=== PATIENT | male | born 1975 | race Caucasian/White ===

== ENCOUNTER → 2020-04-13 10:38 | Outpatient (CLI) | payer OTHER, SELFPAY ==
[2020-04-16 19:11] LABS: COVID19 Sendout Not Detected (Not Detected)
== END ==
PROVIDERS: Visit Provider Physician Assistant
DX: J32.9 Chronic sinusitis, unspecified (principal)
CPT/HCPCS: 87635

== ENCOUNTER 2020-05-02 18:00 | Emergency (ER) | payer OTHER, SELFPAY ==
[2020-05-02 18:07] VITALS: BP 142/83; PULSE 69; RESP 16; O2SAT 99
--- NOTE | 2020-05-02 18:07 | DI.RAD.S_ITS ---
PROCEDURE: XR WRIST LT MIN 3V INDICATIONS: parasailing vs concrete TECHNIQUE: 4 views of the wrist were acquired. COMPARISON: None. FINDINGS: Bones: Postsurgical changes compatible with ORIF of distal radius fracture noted. Orthopedic hardware is intact. No lucencies at the bone hardware interface. Chronic appearing ulnar styloid process fracture noted. Cortical step-off noted in the medial margin of the distal ulna Scaphoid view: Scaphoid is intact. Soft tissues: No suspicious soft tissue calcifications. IMPRESSION: 1. Chronic distal radius and ulnar styloid process fractures. 2. Possible nondisplaced acute distal ulnar fracture. Dictated by: Chiquita Turpin MD, PhD on 05/02/2020 at 18:35 Approved by: Chiquita Turpin MD, PhD on 05/02/2020 at 18:36
--- NOTE | 2020-05-02 18:07 | DI.RAD.S_ITS ---
PROCEDURE: XR TOE LT MIN 2V INDICATIONS: parasailing vs concrete TECHNIQUE: 2 views of the right 1st toe(s) acquired. COMPARISON: None. FINDINGS: Bones: Mildly displaced fracture through the base of the 1st proximal phalanges which stands into the MTP joint. The 2nd PIP and DIP joints are held in marked flexion and may be dislocated. Soft tissues: No suspicious soft tissue densities. IMPRESSION: 1. 1st proximal phalange fracture. 2. Possible 2nd interphalangeal joint dislocations. Recommend correlation with clinical data. Dictated by: Chiquita Turpin MD, PhD on 05/02/2020 at 18:33 Approved by: Chiquita Turpin MD, PhD on 05/02/2020 at 18:35
[2020-05-02 18:18] VITALS: TEMP 37
--- NOTE | 2020-05-02 18:20 | ED.UPPEXIN ---
HPI - Extremity Injury (Upper) General Chief Complaint: Extremity Injury, Upper Stated Complaint: FALL LEFT ARM INJURY Time Seen by Provider: 05/02/20 18:00 Source: patient Mode of arrival: Ambulatory Limitations: no limitations History of Present Illness HPI narrative: 44-year-old male nonsmoker with noncontributory medical history presents with his in the chief complaint of multiple injuries just prior to arrival after injury while parasailing. He has multiple superficial abrasions and states his tetanus is current. He denies head, neck, or back pain. He has a history of prior complex left wrist fracture status post repair and states he has pain and swelling along with some poor alignment but is unclear what his baseline actually is. He denies any numbness, tingling or weakness. He does have some increased pain with range of motion. Additionally he has some pain and swelling was left great toe as well as superficial abrasion of right lateral thigh. Related Data Home Medications Medication Instructions Recorded Confirmed fluticasone propionate 50 2 spray NASAL DAILY 04/25/20 04/25/20 mcg/actuation nasal spray,suspension loratadine 10 mg tablet 10 mg PO DAILY 04/25/20 04/25/20 Previous Rx's Medication Instructions Recorded cefixime 400 mg capsule 400 mg PO DAILY #21 cap 04/25/20 hydrocodone-acetaminophen 1 tab PO Q4-6H PRN #10 tab 05/02/20 Allergies Allergy/AdvReac Type Severity Reaction Status Date / Time No Known Drug Allergies Allergy Verified 04/25/20 16:04 Review of Systems Constitutional Constitutional: Denies chills, Denies fatigue, Denies fever(s), Denies frequent falls, Denies lethargy and Denies weakness Eyes Eyes: Denies change in vision, Denies eye discharge, Denies irritation and Denies loss of vision ENT Ears, Nose, Mouth, and Throat: Denies change in voice, Denies dizziness, Denies neck pain, Denies sore throat and Denies throat swelling Cardiovascular Cardiovascular: Denies chest pain, Denies irregular heart rhythm, Denies lightheadedness, Denies palpitations, Denies dyspnea, Denies dyspnea on exertion and Denies orthopnea Respiratory Respiratory: Denies cough, Denies dyspnea, Denies dyspnea on exertion and Denies wheezing Gastrointestinal Gastrointestinal: Denies abdominal pain, Denies change in bowel habits, Denies diarrhea, Denies nausea and Denies vomiting Musculoskeletal Musculoskeletal: Reports deformity, Reports arthralgias, Reports joint swelling, Denies neck pain and Denies numbness Integumentary/Breasts Skin/Breast: Denies pruritus, Denies erythema, Denies rash, Reports skin swelling and Reports wounds Neurologic Neurologic: Denies behavioral changes, Denies confusion, Denies dizziness, Denies frequent falls, Denies loss of vision, Denies numbness and Denies weakness Psychiatric Psychiatric: Denies anxiety, Denies behavioral changes, Denies confusion, Denies depression, Denies homicidal ideation and Denies suicidal ideation Endocrine Endocrine: Denies fatigue, Denies flushing and Denies palpitations Hematologic/Lymphatic Hematologic/Lymphatic: Denies easy bruising Allergic/Immunologic Allergic/Immunologic: Denies urticaria, Denies throat swelling and Denies wheezing Patient History Medical History Allergic rhinitis (Chronic) Sinusitis (Resolved) Surgical History History of back surgery (Acute ~1992) Family History Mother Lung cancer Social History Smoking Status: Never smoker Smoking Status: Never smoker Exam Narrative Exam Narrative: GENERAL: [44] year old patient appears stated age. Well-nourished, well-developed patient, in mild distress. GCS 15 HEAD: Atraumatic. Normocephalic. EYES: Pupils equal round and reactive. Extraocular motions intact. No scleral icterus. No injection or drainage. ENT: Nose without bleeding, purulent drainage. Throat without erythema, tonsillar hypertrophy or exudate. Airway patent. NECK: Trachea midline. Non tender CARDIOVASCULAR: Regular rate and rhythm without murmurs, gallops, or rubs. RESPIRATORY: Clear to auscultation. Breath sounds equal bilaterally. No wheezes, rales, or rhonchi. GASTROINTESTINAL: Abdomen soft, non-tender, nondistended. EXTREMITIES: Full but painful range of motion of left wrist with what appears to be some lateral deviation. Close, neurovascularly intact. Left great toe with ecchymosis and painful range of motion. Closed and neurovascularly intact BACK: Nontender without deformity or crepitance. No flank tenderness. NEURO: AOx3. SKIN: No rash or erythema of visible areas Initial Vital Signs Initial Vital Signs: Vital Signs Pulse Rate 69 05/02/20 18:07 Respiratory Rate 16 05/02/20 18:07 Blood Pressure 142/83 H 05/02/20 18:07 Pulse Oximetry 99 05/02/20 18:07 Procedures Orthopedic Splinting/Casting Injury #1: Side: left Lower Extremity Injury Location: toe Lower Extremity Immobilizer: post-op shoe Post splinting neuro exam: intact Post splinting vascular exam: intact Placed by: Nursing Injury #2: Side: left Upper Extremity Injury Location: wrist Upper Extremity Immobilizer: wrist splint Post splinting neuro exam: intact Post splinting vascular exam: intact Placed by: Nursing Course Orders Ordered: ED Orders 05/02/20 18:07 XR toe LT min 2V Stat XR wrist LT min 3V Stat Discontinued Medications Bacitracin (Bacitracin) 1 applic TOP NOW ONE Stop: 05/02/20 18:44 Vital Signs Vital signs: Vital Signs - 8 hr 05/02/20 18:07 05/02/20 18:18 05/02/20 19:19 Temperature 98.6 F Pulse Rate 69 61 Respiratory Rate 16 16 Blood Pressure 142/83 H 124/71 Pulse Oximetry 99 98 MDM - Extremity Injury (Upper) Imaging Data Extremity x-ray #1: Radiologist's Impression: [address] [address] XRay Report Signed Patient: Alek William DMR#: [id number] : 1975Acct:[id number] Age/Sex: 44 / MDate of Service: 05/02/20 Loc: ED Accession Number: [id number] Procedure: XR toe LT min 2V Ordering Provider: Chris Rosario D.O. PROCEDURE: XR TOE LT MIN 2V INDICATIONS: parasailing vs concrete TECHNIQUE: 2 views of the right 1st toe(s) acquired. COMPARISON: None. FINDINGS: Bones: Mildly displaced fracture through the base of the 1st proximal phalanges which stands into the MTP joint. The 2nd PIP and DIP joints are held in marked flexion and may be dislocated. Soft tissues: No suspicious soft tissue densities. IMPRESSION: 1. 1st proximal phalange fracture. 2. Possible 2nd interphalangeal joint dislocations. Recommend correlation with clinical data. Dictated by: Chiquita Turpin MD, PhD on 05/02/2020 at 18:33 Approved by: Chiquita Turpin MD, PhD on 05/02/2020 at 18:35 Extremity x-ray #2: Radiologist's Impression: [address] [address] XRay Report Signed Patient: Alek William DMR#: [id number] : 1975Acct:[id number] Age/Sex: 44 / MDate of Service: 05/02/20 Loc: ED Accession Number: [id number] Procedure: XR wrist LT min 3V Ordering Provider: Chris Rosario D.O. PROCEDURE: XR WRIST LT MIN 3V INDICATIONS: parasailing vs concrete TECHNIQUE: 4 views of the wrist were acquired. COMPARISON: None. FINDINGS: Bones: Postsurgical changes compatible with ORIF of distal radius fracture noted. Orthopedic hardware is intact. No lucencies at the bone hardware interface. Chronic appearing ulnar styloid process fracture noted. Cortical step-off noted in the medial margin of the distal ulna Scaphoid view: Scaphoid is intact. Soft tissues: No suspicious soft tissue calcifications. IMPRESSION: 1. Chronic distal radius and ulnar styloid process fractures. 2. Possible nondisplaced acute distal ulnar fracture. Dictated by: Chiquita Turpin MD, PhD on 05/02/2020 at 18:35 Approved by: Chiquita Turpin MD, PhD on 05/02/2020 at 18:36 Discharge Plan Departure Patient Disposition: Home Clinical Impression: Abrasion Fracture of toe Qualifiers: Encounter type: initial encounter Toe: great toe Fracture type: closed Phalanx: proximal Fracture alignment: nondisplaced Laterality: left Qualified Code(s): S92.415A - Nondisplaced fracture of proximal phalanx of left great toe, initial encounter for closed fracture Left wrist sprain Qualifiers: Encounter type: initial encounter Qualified Code(s): S63.502A - Unspecified sprain of left wrist, initial encounter Discharge Date/Time: 05/02/20 19:19 Instructions: DI for Toe Fracture, DI for Abrasion Activity Restrictions/Additional Instructions: *You have been diagnosed with [left great toe fracture, possible nondisplaced distal ulna fracture of left wrist, multiple abrasions] *What to do: *Take medications as directed: prescription sent to [facility] at your request *Follow up with your primary care provider in 2-3 days, call for an appointment. Let them know you were seen in the Emergency Department and that we ask that you be seen in follow up *Return to ER if you should have any new, worsening or concerning symptoms Splint Care: Keep splint clean and dry. Elevated affected body part to decrease swelling. OK to use ice pack on the affected body part. Use for 15-20 minutes each time, for 5-6x per day. If you develop worsening pain, numbness, tingling, discoloration of the affected body part, loosen the splint by loosening the RADHA wrap, and either see your doctor for an urgent re-assessment, or return to the Emergency Department. Return to the Emergency Department for any new or worsening symptoms. Prescriptions: New hydrocodone-acetaminophen 5-325 mg tablet 1 tab PO Q4-6H PRN (Reason: pain) Qty: 10 RF: 0 No Action fluticasone propionate 50 mcg/actuation spray,suspension 2 spray NASAL DAILY RF: 0 loratadine [Claritin] 10 mg tablet 10 mg PO DAILY RF: 0 cefixime 400 mg capsule 400 mg PO DAILY Qty: 21 RF: 2 Referrals: Anmol Ospina MD [Primary Care Provider] - iMchael Mcintyre MD [Physician] -
[2020-05-02 19:19] VITALS: BP 124/71; PULSE 61; RESP 16; O2SAT 98
== END 2020-05-02 19:19 | disposition home or self-care (01) ==
PROVIDERS: Emergency Provider Emergency Medicine; PCP Internal Medicine
DX: S92.415A Nondisplaced fracture of proximal phalanx of left great toe, initial encounter for closed fracture (principal); S63.502A Unspecified sprain of left wrist, initial encounter; S70.311A Abrasion, right thigh, initial encounter; Y93.19 Activity, other involving water and watercraft
CPT/HCPCS: 29125; 73110; 73660; 99283; 99284

== ENCOUNTER → 2020-08-29 12:41 | Outpatient (CLI) | payer OTHER, SELFPAY ==
--- NOTE | 2020-08-29 13:17 | DI.CT.S_ITS ---
PROCEDURE: CT SINUS SCREEN WO CON INDICATIONS: Chronic pansinusitis TECHNIQUE: Noncontrast 3.0 mm axial images acquired from the frontal sinuses to the mid-sella, with coronal and sagittal reformats. For radiation dose reduction, the following was used: automated exposure control, adjustment of mA and/or kV according to patient size. COMPARISON: None. FINDINGS: Image quality: This examination is limited by involuntary motion artifact. Maxillary Sinuses: No bony remodeling or destruction. Small mucous retention cysts are seen within the maxillary sinuses. Sinuses are otherwise clear. Ethmoid Air Cells: No bony remodeling or destruction. Sinuses are clear. Sphenoid Sinuses: No bony remodeling or destruction. Sinuses are clear. Frontal Sinuses: No bony remodeling or destruction. Sinuses are clear. Ostiomeatal Complexes: Ostiomeatal complexes are patent, yet they are constitutionally narrowed, with bilateral Hayley cells. Miscellaneous: Visualized intra-orbital contents are normal. There are bilateral arturo bullosa. There is minimal rightward nasal septal deviation. IMPRESSION: No significant active paranasal sinus disease is seen. Narrowed ostiomeatal complexes, with bilateral Hayley cells. Bilateral arturo bullosa are seen. Dictated by: Sb Lopez M.D. on 08/29/2020 at 12:23 Approved by: Sb Lopez M.D. on 08/29/2020 at 12:24
== END ==
PROVIDERS: PCP Internal Medicine; Referring Provider Otolaryngology; Visit Provider Otolaryngology
DX: J32.4 Chronic pansinusitis (principal)
CPT/HCPCS: 70486

== ENCOUNTER → 2021-06-06 08:58 | Outpatient (CLI) | payer OTHER, SELFPAY ==
[2021-06-06 09:50] LABS: COVID19 -Nasal RAPID Negative (Negative)
== END ==
PROVIDERS: PCP Internal Medicine; Visit Provider Physician Assistant
DX: R53.83 Other fatigue (principal); R51.9 Headache, unspecified; Z20.822 Contact with and (suspected) exposure to COVID-19
CPT/HCPCS: 87635

== ENCOUNTER → 2021-07-10 08:29 | Outpatient (CLI) | payer OTHER, SELFPAY ==
[2021-07-10 09:08] LABS: Cholesterol 184 mg/dL (140-199); HDL Cholesterol 50 mg/dL (40-60); LDL Cholesterol Calculated 117 mg/dL (<100); Triglycerides 83 mg/dL (35-150)
== END ==
PROVIDERS: PCP Internal Medicine; Referring Provider Internal Medicine; Visit Provider Internal Medicine
DX: Z13.220 Encounter for screening for lipoid disorders (principal)
CPT/HCPCS: 36415; 80061

== ENCOUNTER → 2021-10-11 07:36 | Outpatient (CLI) | payer OTHER, SELFPAY ==
[2021-10-11 08:16] LABS: COVID19 -Nasal RAPID Negative (Negative)
== END ==
PROVIDERS: PCP Internal Medicine; Visit Provider Nurse Practitioner Family
DX: Z20.822 Contact with and (suspected) exposure to COVID-19 (principal)
CPT/HCPCS: 87635

== ENCOUNTER → 2022-04-11 13:43 | Outpatient (CLI) | payer OTHER, SELFPAY ==
[2022-04-11 14:27] LABS: COVID19 -Nasal RAPID Negative (Negative)
== END ==
PROVIDERS: PCP Internal Medicine; Visit Provider Surgery
DX: Z20.822 Contact with and (suspected) exposure to COVID-19 (principal); Z01.812 Encounter for preprocedural laboratory examination
CPT/HCPCS: 87635; C9803

== ENCOUNTER 2022-04-12 12:59 | Day surgery (SDC) | payer OTHER, SELFPAY ==
--- NOTE | 2022-04-12 | PATH_ITS ---
[facility] Accession Number: [id number] . 01 Material submitted: . colon - CECUM POLYP . 01 Diagnosis: Cecum, Polyp, Biopsy: Tubular adenoma. MRV 04/13/2022 1224 Local . 01 Electronically signed: . Jeanette Shetty MD, Pathologist NPI- [id number] . 01 Gross description: . CECUM POLYP: Received in formalin is 1 fragment(s) of campos, soft tissue measuring 0.8 x 0.7 x 0.7 cm which is bisected and submitted entirely in 1 cassette(s) /JOSELUIS 04/13/2022 0205 Local . 01 Pathologist provided ICD-10: D12.0 . 01 CPT . 537743 Specimen Comment: A courtesy copy of this report has been sent to [phone] Performed at: 01 [facility] [address] [place] [id number] MD Gino Lubin MD Phone: [phone]
[2022-04-12 13:28] VITALS: BP 129/84; PULSE 51; RESP 16; TEMP 36.2; O2SAT 99; BMI 27.6
[2022-04-12] MEDS: LACTATED RINGERS 1,000 ML 42 ML IV (13:34)
--- NOTE | 2022-04-12 14:25 | PM.HP.1 ---
History of Present Illness History of Present Illness Date Patient Seen: 04/12/22 Time Patient Seen: 14:25 Chief complaint: SDC Narrative: Alek is a healthy 46-year-old man who is here for a colonoscopy for colon cancer screening. He has no known family history colon cancer. He has never had a colonoscopy before. Patient History Medical History (Updated 04/12/22 @ 14:26 by Bryce Hightower MD) Allergic rhinitis Sinusitis Surgical History History of back surgery (~1992) Family & Social History Family History Mother Lung cancer Social History: household members spouse Tobacco & Substance use: Smoking Status Never smoker alcohol intake current alcohol intake frequency a few times a month Substance Use Type does not use Meds Home Medications and Allergies Home Medications Medication Instructions Recorded Confirmed Type epinephrine 0.3 mg/0.3 mL 0.3 mg IM ONCE PRN anaphylaxis 12/15/21 12/15/21 History injection, auto-injector sodium,potassium,mag sulfates 17.5 See Rx Instructions PO .COMPLEX 12/15/21 Rx gram-3.13 gram-1.6 gram oral soln #354 mL (Suprep Bowel Prep Kit) Allergies Allergy/AdvReac Type Severity Reaction Status Date / Time No Known Drug Allergies Allergy Verified 12/15/21 10:28 Exam Vital Signs (past 8 hours): - 04/12/22 13:28 Temperature 97.1 F L Pulse Rate 51 L Respiratory Rate 16 Blood Pressure 129/84 Pulse Oximetry 99 Oxygen Delivery Method Room Air Oxygen Delivery Method Room Air Const General: healthy appearing Resp Effort & Inspection: normal respiratory effort Assessment & Plan Assessment and plan (1) Colon cancer screening: Status: Acute Plan Alek is a 46-year-old man who is here for colon cancer screening. We reviewed the risks of colonoscopy and he would like to proceed. Time Spent With Patient Critical Care time: I spent a total of [] minutes of critical care time on this patient's care today; this time is exclusive of procedural time.
[2022-04-12] MEDS: fentaNYL 250 MCG/5 ML INJ 200 MCG IV (14:46)
[2022-04-12] MEDS: MIDAZOLAM 5 MG/5 ML VIAL 10 MG IV (14:52)
--- NOTE | 2022-04-12 15:02 | P.OP.COLON_ITS ---
Operative Date/Time/Diagnoses Date of procedure: 04/12/22 Time of procedure: 15:03 Pre-op diagnosis: Colon cancer screening Post-op diagnosis: same Procedure & Clinicians Study performed: Colonoscopy Same procedure as scheduled: Yes Surgeon: Bryce Hightower Procedure Notes Procedure in detail: Surgeon: Bryce Hightower MD Procedure: The patient was brought to the endoscopy suite, placed in left lateral decubitus position. The patient was connected to monitoring devices. A time-out was performed. Sedation was administered. Once the patient was adequately sedated, a digital rectal exam was performed and was normal. The scope was then inserted and advanced to the cecum where the appendiceal orifice was identified and photographed. The scope was then slowly withdrawn over greater than 6 minutes. The mucosa was thoroughly inspected. There was a rather large pedunculated polyp in the ascending colon. It was roughly 1.5 cm in diameter. It was removed with a hot snare retrieved with a Busby net. Once specimen was extracted the scope was reinserted and the rest of the colon was t horoughly examined. There were no other lesions. The scope was retroflexed in the rectum. No abnormalities were noted. The scope was straightened and removed. The patient was awakened and brought to recovery. Versed: 10 mg Fentanyl: 200 mcg EBL: 5 mL Findings: 1.5 cm ascending colon polyp Scope withdrawal time: 17 Sedation minutes: 29 Post-procedure Recommendations: Will call with biopsy results Disposition: PACU
[2022-04-12 15:10] VITALS: BP 136/81; PULSE 74; RESP 16; O2SAT 98
[2022-04-12 15:12] VITALS: BP 137/88; PULSE 65; RESP 18; TEMP 36.6; O2SAT 98
[2022-04-12 15:15] VITALS: BP 136/81; PULSE 74; RESP 16; O2SAT 97
[2022-04-12 15:25] VITALS: BP 123/87; PULSE 64; RESP 16; TEMP 36.4; O2SAT 97
--- NOTE | 2022-04-12 15:46 | SUR.PHASEII ---
Addendum entered by Earline Bach R.N. 04/12/22 16:05: 1600- here. Discharged to home with paperwork and all belongings. escorted by wheelchair to 's care and car. Original Note: 04/12/22-1530 meets criteria for discharge.no pain/nausea. iv out. dressed and ready. has all valubles. to call when arrived. eta 20 minutes.
== END 2022-04-12 16:00 | disposition home or self-care (01) ==
PROVIDERS: PCP Internal Medicine; Referring Provider Surgery; Visit Provider Surgery
PROC: 0DJD8ZZ Inspection of Lower Intestinal Tract, Via Natural or Artificial Opening Endoscopic (ICD-10-PCS; CPT 45378; principal; 2022-04-12 14:15)
DX: Z12.11 Encounter for screening for malignant neoplasm of colon (principal); D12.0 Benign neoplasm of cecum
CPT/HCPCS: 45385; 99152; 99153; J2250; J3010

== ENCOUNTER → 2023-10-10 12:19 | Outpatient (CLI) | payer OTHER, SELFPAY ==
[2023-10-10 13:42] LABS: Influenza A - CEPHEID Flu A NEGATIVE (NEGATIVE); Influenza B - CEPHEID Flu B NEGATIVE (NEGATIVE); Respiratory Syncytial Virus Negative (Negative)
[2023-10-10 13:53] LABS: COVID-19 CEPHEID 4-PLEX PCR Negative (Negative)
== END ==
PROVIDERS: PCP Internal Medicine; Visit Provider Physician Assistant
DX: R05.1 Acute cough (principal)
CPT/HCPCS: 0241U

== ENCOUNTER → 2023-10-10 12:22 | Outpatient (CLI) | payer OTHER, SELFPAY ==
--- NOTE | 2023-10-10 12:24 | DI.RAD.S_ITS ---
PROCEDURE: XR CHEST 2V INDICATIONS: chronic cough x 1 mo TECHNIQUE: 2 views of the chest were acquired. COMPARISON: None. FINDINGS: Surgical changes and devices: None. Lungs and pleura: Lungs are clear. No pleural effusions or pneumothorax. Mediastinum: Mediastinal contours are normal. Heart size is normal. Bones and chest wall: No suspicious bony abnormalities. Soft tissues appear unremarkable. IMPRESSION: No acute cardiopulmonary abnormalities or focal airspace disease. Dictated by: Martin Bravo M.D. on 10/10/2023 at 14:26 Approved by: Martin Bravo M.D. on 10/10/2023 at 14:26
== END ==
LOC: RAD 12:23
PROVIDERS: PCP Internal Medicine; Referring Provider Physician Assistant; Visit Provider Physician Assistant
DX: J06.9 Acute upper respiratory infection, unspecified (principal); R05.1 Acute cough
CPT/HCPCS: 0241U; 71046

== ENCOUNTER 2023-12-15 11:51 | Emergency (ER) | payer OTHER, SELFPAY ==
[2023-12-15 12:06] VITALS: BP 183/75; PULSE 96; RESP 16; TEMP 37.3; O2SAT 96; BMI 26.9
--- NOTE | 2023-12-15 12:14 | DI.RAD.S_ITS ---
PROCEDURE: XR CHEST 2V INDICATIONS: cough TECHNIQUE: 2 views of the chest were acquired. COMPARISON: [facility], CR, XR CHEST 2V, 10/10/2023, 13:29. FINDINGS: Surgical changes and devices: None. Lungs and pleura: No consolidation identified. Lungs appear unchanged. No pleural effusions or pneumothorax. Mediastinum: Mediastinal contours are normal. Heart size is normal. Bones and chest wall: No suspicious bony abnormalities. Soft tissues appear unremarkable. IMPRESSION: No consolidation identified. Dictated by: Pa Robert M.D. on 12/15/2023 at 12:24 Approved by: Pa Robert M.D. on 12/15/2023 at 12:25
[2023-12-15 13:08] LABS: Influenza A - CEPHEID Flu A NEGATIVE (NEGATIVE); Influenza B - CEPHEID Flu B NEGATIVE (NEGATIVE); Respiratory Syncytial Virus Negative (Negative)
[2023-12-15 13:10] LABS: COVID-19 CEPHEID 4-PLEX PCR Negative (Negative)
--- NOTE | 2023-12-15 13:32 | ED.URI ---
HPI - URI/Sore Throat <NITO Corona - Last Filed: 12/15/23 13:51> General Chief Complaint: Upper Respiratory Symptoms Stated Complaint: Chronic cough/ach/pains/fever/just nt getting bett Time Seen by Provider: 12/15/23 12:43 Source: patient Mode of arrival: Ambulatory History of Present Illness HPI Narrative: 48-year-old male, never smoker, presents to the emergency department with cough, congestion, sinus pain and ear fullness. Patient reports symptoms have been ongoing for over 1 month. Patient was seen in the walk-in clinic, initially felt better, but then started feeling poorly again over the next week. Patient denies a history of asthma, bronchitis or pneumonia. Related Data Home Medications Medication Instructions Recorded Confirmed epinephrine 0.3 mg/0.3 mL 0.3 mg IM ONCE PRN anaphylaxis 12/15/21 10/10/23 injection, auto-injector Previous Rx's Medication Instructions Recorded benzonatate 100 mg capsule 100 mg PO BID PRN cough #20 caps 06/29/23 albuterol sulfate 90 mcg/actuation 2 puff inhalation Q4-6H PRN 10/10/23 aerosol inhaler shortness of breath or wheezing #6.7 grams fluticasone propionate 50 1 spray intranasal DAILY #16 grams 10/10/23 mcg/actuation nasal spray,suspension (Flonase Allergy Relief) guaifenesin 1,200 mg tablet, 1,200 mg PO Q12H #30 tabs 10/10/23 extended release 12 hr dextroamphetamine sulfate 10 mg 10 mg PO TID PRN ADHD #60 tabs 11/12/23 tablet dextroamphetamine-amphetamine ER 10 mg PO DAILY #30 caps 11/12/23 10 mg 24hr capsule,extend release amoxicillin 875 mg-potassium 1 tab PO BID Sinusitis 10 days #20 12/15/23 clavulanate 125 mg tablet tabs Allergies Allergy/AdvReac Type Severity Reaction Status Date / Time No Known Drug Allergies Allergy Verified 12/15/23 12:11 Review of Systems <NITO Corona - Last Filed: 12/15/23 13:51> Review of Systems Narrative: Narrative: See HPI. GENERAL: Denies chills, fatigue, fever, sweats. HEENT: Denies sore throat, difficulty swallowing, dizziness. Endorses sinus pain and right ear pain. RESPIRATORY: Denies dyspnea, wheezing, sputum. Endorses cough and congestion. CARDIOVASCULAR: Denies chest pain, palpitations, edema. GASTROINTESTINAL: Denies nausea, vomiting, abdominal pain, diarrhea, constipation. : Denies dysuria, frequency, incontinence, hematuria, urinary retention, flank pain. MSK: Denies weakness, joint pain, or bony pain. SKIN: Denies rash, skin lesions, or pruritis. NEUROLOGIC: Denies weakness, dizziness, headache, numbness, confusion. Patient History <NITO Corona - Last Filed: 12/15/23 13:51> Medical History ADHD History of adenomatous polyp of colon Allergic rhinitis Sinusitis Surgical History History of back surgery (~1992) Family History Mother Lung cancer Social History household members: spouse Smoking Status: Never smoker alcohol intake: current Smoking Status: Never smoker alcohol intake frequency: a few times a month Substance Use Type: does not use Exam <NITO Corona - Last Filed: 12/15/23 13:51> Narrative Exam Narrative: Exam Narrative: GENERAL: This is a well-nourished, well-developed patient, in no acute distress. HEAD: Atraumatic. Normocephalic. EYES: Pupils equal round and reactive. No scleral icterus, injection or drainage. ENT: Nose without bleeding, purulent drainage. Throat without erythema, tonsillar hypertrophy or exudate. Uvula midline. Airway patent. Right TM is bulging and with yellow discharge behind TM. Left TMs and canals clear. Pansinus tenderness. NECK: Trachea midline. No JVD or lymphadenopathy. Nontender. CARDIOVASCULAR: Regular rate and rhythm without murmurs, peripheral pulses intact, cap refill <2 sec. RESPIRATORY: Breath sounds equal and clear bilaterally. No wheezes, rales, or rhonchi. No cough. No increased respiratory effort. No accessory muscle use. GASTROINTESTINAL: Abdomen soft, non-tender, nondistended without guarding or rebound. No suprapubic pain. MSK: Moves all extremities. Normal range of motion, no clubbing or edema. Neurovascularly intact. NEURO: A&O x 3. SKIN: Warm, dry, no rashes or lesions noted. Initial Vital Signs Initial Vital Signs: Vital Signs Temperature 99.1 F 12/15/23 12:06 Pulse Rate 96 H 12/15/23 12:06 Respiratory Rate 16 12/15/23 12:06 Blood Pressure 183/75 H 12/15/23 12:06 Pulse Oximetry 96 12/15/23 12:06 Oxygen Delivery Method Room Air 12/15/23 12:06 Reviewed <You Schulte DO - Last Filed: 12/15/23 14:05> Initial Vital Signs Initial Vital Signs: Vital Signs Temperature 99.1 F 12/15/23 12:06 Pulse Rate 96 H 12/15/23 12:06 Respiratory Rate 16 12/15/23 12:06 Blood Pressure 183/75 H 12/15/23 12:06 Pulse Oximetry 96 12/15/23 12:06 Oxygen Delivery Method Room Air 12/15/23 12:06 Course <NITO Corona - Last Filed: 12/15/23 13:51> Orders Ordered: ED Orders 12/15/23 12:14 XR chest 2V Stat 12/15/23 12:15 Covid-19 + FLU A/B + RSV - PCR Stat Vital Signs Vital signs: Vital Signs - 8 hr 12/15/23 12:06 12/15/23 13:58 Temperature 99.1 F Pulse Rate 96 H 86 Respiratory Rate 16 24 Blood Pressure 183/75 H 129/74 Pulse Oximetry 96 97 Oxygen Delivery Method Room Air Room Air <You Schulte DO - Last Filed: 12/15/23 14:05> Orders Ordered: ED Orders 12/15/23 12:14 XR chest 2V Stat 12/15/23 12:15 Covid-19 + FLU A/B + RSV - PCR Stat Vital Signs Vital signs: Vital Signs - 8 hr 12/15/23 12:06 12/15/23 13:58 Temperature 99.1 F Pulse Rate 96 H 86 Respiratory Rate 16 24 Blood Pressure 183/75 H 129/74 Pulse Oximetry 96 97 Oxygen Delivery Method Room Air Room Air MDM - URI/Sore Throat <NITO Corona - Last Filed: 12/15/23 13:51> Differential Diagnosis Differential diagnosis: Likely upper respiratory infection, otitis media, sinusitis, viral infection and bronchitis Lab Data Labs: Lab Results 12/15/23 Range/Units 12:15 SARS-CoV-2 (PCR) Negative (Negative) Influenza A (RT-PCR) Flu a negative (NEGATIVE) Influenza B (RT-PCR) Flu b negative (NEGATIVE) RSV (PCR) Negative (Negative) Imaging Data Chest x-ray: Radiologist's Impression: [address] [address] XRay Report Signed Patient: Alek William MR#: [id number] : 1975 Acct:[id number] Age/Sex: 48 / M Date of Service: 12/15/23 Loc: ED Accession Number: [id number] Procedure: XR chest 2V Ordering Provider: You Schulte D.O. PROCEDURE: XR CHEST 2V INDICATIONS: cough TECHNIQUE: 2 views of the chest were acquired. COMPARISON: [facility], , XR CHEST 2V, 10/10/2023, 13:29. FINDINGS: Surgical changes and devices: None. Lungs and pleura: No consolidation identified. Lungs appear unchanged. No pleural effusions or pneumothorax. Mediastinum: Mediastinal contours are normal. Heart size is normal. Bones and chest wall: No suspicious bony abnormalities. Soft tissues appear unremarkable. IMPRESSION: No consolidation identified. Dictated by: Pa Robert M.D. on 12/15/2023 at 12:24 Approved by: Pa Robert M.D. on 12/15/2023 at 12:25 MDM Narrative Medical decision making narrative: 48-year-old male with cough, congestion, sinus pain and ear pain. Assessment was consistent with sinusitis and right otitis media. Chest x-ray was normal and viral panel was negative for COVID, influenza and RSV. Will treat with Augmentin for 10 days. Discussed plan of care and return precautions with patient, who verbalized understanding and was agreeable with course of action. <You Schulte DO - Last Filed: 12/15/23 14:05> Lab Data Labs: Lab Results 12/15/23 Range/Units 12:15 SARS-CoV-2 (PCR) Negative (Negative) Influenza A (RT-PCR) Flu a negative (NEGATIVE) Influenza B (RT-PCR) Flu b negative (NEGATIVE) RSV (PCR) Negative (Negative) Discharge Plan Departure Patient Disposition: Home Clinical Impression: Acute right otitis media Sinusitis Qualifiers: Sinusitis location: pansinusitis Chronicity: acute Recurrence: not specified as recurrent Qualified Code(s): J01.40 - Acute pansinusitis, unspecified Instructions: DI for Sinusitis Activity Restrictions/Additional Instructions: *You have been diagnosed with a sinus and right ear infection. We will treat this with Augmentin for 10 days. Your chest x-ray was normal and your viral panel was negative for COVID, influenza and RSV. Please make sure you hydrate well, get plenty of rest and take [id number] medications as needed. Please follow up with family doctor or return to the emergency department for worsening symptoms. *What to do: *Please continue to take your regular medications as directed. [x ] New medication prescriptions sent to your pharmacy: [[facility]] [ ] New medication written as a paper prescription [ ] No new medications given *Please follow up with your primary care provider in 2-3 days, call for an appointment. Let them know you were seen in the Emergency Department and that we ask that you be seen in follow up. We will electronically transmit a record of today's note if your PCP is in our system *If you do not have a primary care provider please contact the [facility] Resource line at [phone]. They will ask some questions about your medical history and help get you set up with a doctor in the community. ? Return to ER if you should have any new, worsening or concerning symptoms, such as worsening pain, severe headache, confusion, chest pain, difficulty breathing, fever greater than 101 F, shaking chills, persistent vomiting to the point that you cannot drink fluids, or other new or worsening symptoms. Prescriptions: New amoxicillin-pot clavulanate 875-125 mg tablet 1 tab PO BID 10 Days Qty: 20 0RF No Action benzonatate 100 mg capsule 100 mg PO BID PRN (Reason: cough) Qty: 20 0RF guaifenesin 1,200 mg tablet extended release 12hr 1,200 mg PO Q12H Qty: 30 0RF fluticasone propionate [Flonase Allergy Relief] 50 mcg/actuation spray,suspension 1 spray intranasal DAILY Qty: 16 0RF Rx Instructions: administer into each nostril albuterol sulfate 90 mcg/actuation HFA aerosol inhaler 2 puff inhalation Q4-6H PRN (Reason: shortness of breath or wheezing) Qty: 6.7 0RF dextroamphetamine sulfate 10 mg tablet 10 mg PO TID PRN (Reason: ADHD) Qty: 60 0RF Rx Instructions: administer doses at least 4-6 hours apart dextroamphetamine-amphetamine 10 mg capsule,extended release 24hr 10 mg PO DAILY Qty: 30 0RF epinephrine 0.3 mg/0.3 mL auto-injector 0.3 mg IM ONCE PRN (Reason: anaphylaxis) Patient Comments: never used. for allergy shot precuations Referrals: Anmol Ospina MD [Primary Care Provider] - Stand Alone Forms: Patient Portal/API ED Sign-out <You Schulte, - Last Filed: 12/15/23 14:05> Cosign ED Attending Cosignature Attestation: Dr Schulte Co-Sign Statement: I was available for consultation during this patient's emergency department visit. This chart is signed by myself for administrative purposes only. I did not have direct contact with this patient during this visit. They were seen independently by the APC.
[2023-12-15 13:58] VITALS: BP 129/74; PULSE 86; RESP 24; O2SAT 97
--- NOTE | 2023-12-15 13:58 | PC.NURSE ---
assessment done by provider.
== END 2023-12-15 13:59 | disposition home or self-care (01) ==
PROVIDERS: Emergency Medicine; Emergency Provider Registered Nurse; PCP Internal Medicine
DX: J01.40 Acute pansinusitis, unspecified (principal); H66.91 Otitis media, unspecified, right ear
CPT/HCPCS: 0241U; 71046; 99281; 99283

== ENCOUNTER → 2024-01-28 16:51 | Outpatient (CLI) | payer OTHER, SELFPAY ==
--- NOTE | 2024-01-28 16:53 | DI.RAD.S_ITS ---
PROCEDURE: XR SHOULDER RT MIN 2V INDICATIONS: acute right shoulder pain TECHNIQUE: 3 views of the shoulder were acquired. COMPARISON: None. FINDINGS: Bones: No fractures or dislocations. Mild acromioclavicular joint space narrowing and juxta-articular osteophytosis. Normal glenohumeral alignment. Coracoclavicular interval is maintained. No suspicious bony lesions. Visualized ribs appear intact. Soft tissues: No suspicious soft tissue calcifications. IMPRESSION: 1. No acute bony abnormality. 2. Mild acromioclavicular joint osteoarthritis. Dictated by: Mercy Dubon M.D. on 01/29/2024 at 9:00 Approved by: Mercy Dubon M.D. on 01/29/2024 at 9:03
== END ==
PROVIDERS: PCP Internal Medicine; Referring Provider Internal Medicine; Visit Provider Internal Medicine
DX: M25.511 Pain in right shoulder (principal); M19.011 Primary osteoarthritis, right shoulder
CPT/HCPCS: 73030

== ENCOUNTER → 2024-02-06 08:36 | Outpatient (CLI) | payer OTHER, SELFPAY ==
[2024-02-06 12:35] LABS: Alanine Aminotransferase 29 IU/L (<50); Albumin 4.6 g/dL (3.5-5.0); Albumin Globulin Ratio 1.4 (1.0-2.8); Alkaline Phosphatase 63 U/L (38-126); Aspartate Aminotransferase 28 IU/L (17-59); BUN Creatinine Ratio 18.1 (6-22); Bilirubin Total 0.7 mg/dL (0.2-1.3); Blood Urea Nitrogen 17 mg/dL (9-20); Calcium 9.6 mg/dL (8.4-10.2); Carbon Dioxide 21 mmol/L (22-32); Chloride 108 mmol/L (98-107); Cholesterol 203 mg/dL (140-199); Estimated Glomerular Filt Rate > 60 mL/min (>60); Globulin 3.2 g/dL (1.7-4.1); Glucose 79 mg/dL (70-100); HDL Cholesterol 49 mg/dL (40-60); HEMOLYSIS < 15 (0-50); LDL Cholesterol Calculated 120 mg/dL (<100); Potassium 4.3 mmol/L (3.4-5.1); Sodium 140 mmol/L (137-145); Total Protein 7.8 g/dL (6.3-8.2); Triglycerides 170 mg/dL (35-150)
== END ==
PROVIDERS: PCP Internal Medicine; Referring Provider Internal Medicine; Visit Provider Internal Medicine
DX: F90.9 Attention-deficit hyperactivity disorder, unspecified type (principal); Z13.6 Encounter for screening for cardiovascular disorders; Z13.1 Encounter for screening for diabetes mellitus; Z13.220 Encounter for screening for lipoid disorders
CPT/HCPCS: 36415; 80053; 80061

== ENCOUNTER 2024-05-07 12:00 | Day surgery (SDC) | payer OTHER, SELFPAY ==
[2024-05-07] MEDS: LACTATED RINGERS 1,000 ML 42 ML IV (12:20)
[2024-05-07 12:21] VITALS: BP 125/79; PULSE 87; RESP 16; TEMP 36.9; O2SAT 96
--- NOTE | 2024-05-07 13:02 | P.HP_ITS ---
History of Present Illness History of Present Illness Date Patient Seen: 05/07/24 Time Patient Seen: 13:02 Chief complaint: Colonoscopy Narrative: Jacob is a 48-year-old man with rectal bleeding. See office note from February for details. [facility] Medical History ADHD History of adenomatous polyp of colon Allergic rhinitis Sinusitis Surgical History History of back surgery (~1992) Family History Mother Lung cancer Social History (Updated 02/05/24 @ 14:59 by Ashley Keith MA) marital status: number of children: 1 household members: spouse and children lives independently: Yes occupational status: employed Smoking Status: Never smoker alcohol intake: current substance use type: does not use Meds Home Medications and Allergies Home Medications Medication Instructions Recorded Confirmed Type epinephrine 0.3 mg/0.3 mL 0.3 mg IM ONCE PRN anaphylaxis 12/15/21 05/07/24 History injection, auto-injector albuterol sulfate 90 mcg/actuation 2 puff inhalation Q4-6H PRN 10/10/23 05/07/24 Rx aerosol inhaler shortness of breath or wheezing #6.7 grams fluticasone propionate 50 1 spray intranasal DAILY PRN 01/07/24 05/07/24 History mcg/actuation nasal Allergic Symptoms spray,suspension (Flonase Allergy Relief) dextroamphetamine sulfate 10 mg 10 mg PO TID PRN ADHD #60 tabs 05/01/24 05/07/24 Rx tablet Allergies Allergy/AdvReac Type Severity Reaction Status Date / Time No Known Drug Allergies Allergy Verified 05/07/24 12:13 Exam Vital Signs (past 8 hours): - 05/07/24 12:21 Temperature 98.4 F Pulse Rate 87 Respiratory Rate 16 Blood Pressure 125/79 Pulse Oximetry 96 Oxygen Delivery Method Room Air Oxygen Delivery Method Room Air Const General: healthy appearing Assessment & Plan Assessment and plan (1) Rectal bleeding: Status: Acute Plan We reviewed the risks and benefits of colonoscopy for rectal bleeding and he would like to proceed. Time-Based Coding :: [TOTAL MINUTES] spent with patient and on the chart (including review of chart, obtaining history, exam, reviewing outside data, placing orders, documenting exam and treatment plan, and counseling patient) on [DATE].
[2024-05-07 13:25] VITALS: BP 114/75; PULSE 82; RESP 14; TEMP 36.8; O2SAT 97
--- NOTE | 2024-05-07 13:28 | PM.OP.COLON ---
Operative Date/Time/Diagnoses Date of procedure: 05/07/24 Time of procedure: 13:28 Pre-op diagnosis: Rectal bleeding Post-op diagnosis: same Procedure & Clinicians Study performed: Colonoscopy Same procedure as scheduled: Yes Surgeon: Bryce Hightower Procedure Notes Procedure in detail: Surgeon: Bryce Hightower MD Anesthesia: Amanda Enriquez CRNA Procedure: The patient was brought to the endoscopy suite, placed in left lateral decubitus position. The patient was connected to monitoring devices. A time-out was performed. Sedation was administered. Once the patient was adequately sedated, a digital rectal exam was performed and was normal. The scope was then inserted and advanced to the cecum where the appendiceal orifice was identified and photographed. The scope was then slowly withdrawn over greater than 6 minutes. The mucosa was thoroughly inspected. No abnormalities were identified. The scope was retroflexed in the rectum. Mild internal hemorrhoids were noted. The scope was straightened and removed. The patient was awakened and brought to recovery. Scope withdrawal time: 9 minutes Sedation time: 12 minutes EBL: 0 Findings: Mild internal hemorrhoids Post-procedure Recommendations: Colonoscopy in 10 years Disposition: PACU
[2024-05-07 13:30] VITALS: BP 115/74; PULSE 80; RESP 18; O2SAT 97
[2024-05-07 13:35] VITALS: BP 122/79; PULSE 77; RESP 21; TEMP 36.3; O2SAT 99
[2024-05-07 13:39] VITALS: BP 124/76; PULSE 76; RESP 16; O2SAT 98
== END 2024-05-07 14:00 | disposition home or self-care (01) ==
PROVIDERS: PCP Internal Medicine; Referring Provider Surgery; Visit Provider Surgery
PROC: 0DJD8ZZ Inspection of Lower Intestinal Tract, Via Natural or Artificial Opening Endoscopic (ICD-10-PCS; CPT 45378; principal; 2024-05-07 13:00)
DX: K62.5 Hemorrhage of anus and rectum (principal); K64.8 Other hemorrhoids
CPT/HCPCS: 45378; J2704

== ENCOUNTER → 2024-06-03 07:54 | Outpatient (CLI) | payer OTHER, SELFPAY ==
--- NOTE | 2024-06-03 07:55 | DI.RAD.S_ITS ---
PROCEDURE: XR CHEST 2V INDICATIONS: cough TECHNIQUE: 2 views of the chest were acquired. COMPARISON: [facility], CR, XR CHEST 2V, 12/15/2023, 12:15. FINDINGS: Surgical changes and devices: None. Lungs and pleura: Lungs are clear. No pleural effusions or pneumothorax. Mediastinum: Mediastinal contours are normal. Heart size is normal. Bones and chest wall: No suspicious bony abnormalities. Soft tissues appear unremarkable. IMPRESSION: No acute cardiopulmonary abnormalities or focal consolidation. Dictated by: Martin Bravo M.D. on 06/03/2024 at 9:48 Approved by: Martin Bravo M.D. on 06/03/2024 at 9:49
== END ==
PROVIDERS: PCP Internal Medicine; Referring Provider Nurse Practitioner Family; Visit Provider Nurse Practitioner Family
DX: R05.9 Cough, unspecified (principal)
CPT/HCPCS: 71046